=== PATIENT | male | born 1970 | race American Indian/Alaskan Native ===

== ENCOUNTER 2025-02-04 16:04 | Emergency (ER) | payer BC ==
[~2025-02-04] VITALS: Ht 188 cm; Wt 81.6 kg
[2025-02-04] MEDS ORDERED: TETANUS & DIPHTHERIA TOX,ADULT 0.5 ML VIAL IM STA (16:29)
[2025-02-04 17:40] LABS: BASO % 0.6 % (0.1-1.2); EOS # 0.11 (0.04-0.54); EOS % 2.1 % (0.7-7.0); LYMPH # 1.08 (1.18-3.74); LYMPH % 20.6 % (19.3-53.1); MEAN PLATELET VOLUME 10.30 fl (9.4-12.4); MONO # 0.33 (0.24-0.82); MONO % 6.3 % (4.7-12.5); NEUT # 3.68 (1.56-6.13); NEUT % 70.2 % (34.0-71.1); RED CELL DISTRIBUTION WIDTH 11.7 % (11.6-14.4)
[2025-02-04 17:50] LABS: BUN CREA RATIO 19.0 (7.0-25.0); CREATININE SERUM 0.97 mg/dL (0.70-1.30); GFR 78.17; GLUCOSE FASTING 124.0 mg/dL (65-100); OSMOLALITY SERUM 290.0 MOSM/KG (275-295)
== END 2025-02-04 20:47 | disposition home or self-care (01) ==
LOC: ER 16:04 → EDBD 16:52 → ER 16:52
PROVIDERS: Emergency Medicine
DX: S01.421A Laceration with foreign body of right cheek and temporomandibular area, initial encounter (principal); W18.39XA Other fall on same level, initial encounter; Y93.89 Activity, other specified; Y92.89 Other specified places as the place of occurrence of the external cause
CPT/HCPCS: 12011; 90471; 90714; J1670